=== PATIENT | female | born 1980 | race Caucasian/White ===

== ENCOUNTER 2023-05-07 11:26 | Emergency (ER) | payer BC, SELFPAY ==
[~2023-05-07] VITALS: Ht 162.6 cm; Wt 109.1 kg
[~2023-05-07 11:26] MED LIST: FLUO-177 PO
[2023-05-07 11:34] VITALS: BP 127/70; PULSE 75; RESP 16; TEMP 98.3
[2023-05-07] MEDS ORDERED: PERTUSS(ACELL),DIPH,TET VAC/PF 0.5 ML SYRINGE IM. ONE (12:15)
[2023-05-07] MEDS ORDERED: GELATIN SPONGE,ABSORBABLE 12-7 MM TP ONE (12:15)
== END 2023-05-07 12:54 | disposition home or self-care (01) ==
LOC: EMS 11:48
DX: S61.211A Laceration without foreign body of left index finger without damage to nail, initial encounter (principal); F32.A Depression, unspecified; X58.XXXA Exposure to other specified factors, initial encounter; Y93.89 Activity, other specified; Y92.89 Other specified places as the place of occurrence of the external cause; Y99.8 Other external cause status
CPT/HCPCS: 11730; 99284; Z7502